=== PATIENT | male | born 1995 | race Caucasian/White ===

== ENCOUNTER 2021-03-03 13:34 | Outpatient (REF) | payer OTHER, MEDICAID, SELFPAY ==
[2021-03-03 15:43] LABS: Vitamin D 25-OH Total 51.1 ng/mL (>30)
[2021-03-08 01:27] LABS: Alpha-Tocopherol 9.9 mg/L (5.7-19.9); Beta-Gamma Tocopherol <1.0 mg/L (<=4.3)
[2021-03-08 09:31] LABS: Vitamin A 69 mcg/dL (38-98)
== END 2021-03-03 13:35 | disposition home or self-care (01) ==
LOC: HO.LAB 13:34
PROVIDERS: PCP Family Medicine; Visit Provider Student in an Organized Health Care Education/Training Program
DX: E50.9 Vitamin A deficiency, unspecified (principal); E55.9 Vitamin D deficiency, unspecified
CPT/HCPCS: 36415; 82306; 84446; 84590

== ENCOUNTER 2021-03-04 10:32 | Outpatient (REF) | payer OTHER, MEDICAID, SELFPAY ==
[2021-03-04 11:37] LABS: CDIFF Ag Negative (Negative); CDIFF Internal ctrl Dots and bkg OK (V); CDiff Toxin Negative (Negative)
== END 2021-03-04 10:33 | disposition home or self-care (01) ==
LOC: HO.LDS 10:32
PROVIDERS: Visit Provider Student in an Organized Health Care Education/Training Program
DX: R19.7 Diarrhea, unspecified (principal)
CPT/HCPCS: 87324; 87449

== ENCOUNTER 2021-03-19 19:57 | Emergency (ER) | payer OTHER, MEDICAID, SELFPAY ==
[2021-03-19 20:05] VITALS: BP 131/72; PULSE 106; RESP 20; TEMP 36.7; O2SAT 100; BMI 23.2
--- NOTE | 2021-03-19 20:12 | ED_ITS ---
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 Related Data Previous Rx's Medication Instructions Recorded epinephrine [EpiPen 2-Yomi] 0.3 mg IM Q15M PRN #2 ea 03/19/21 Allergies Allergy/AdvReac Type Severity Reaction Status Date / Time apple Allergy Anaphylaxis Verified 03/19/21 20:18 banana Allergy Anaphylaxis Verified 03/19/21 20:18 blue dye Allergy Anaphylaxis Verified 03/19/21 20:18 cayenne pepper fruits Allergy Anaphylaxis Verified 03/19/21 20:18 Dihydroaminopryidine Allergy Anaphylaxis Verified 03/19/21 20:18 Antibiotics Iodinated Contrast Media Allergy Anaphylaxis Verified 03/19/21 20:18 kiwi Allergy Anaphylaxis Verified 03/19/21 20:18 latex Allergy Anaphylaxis Verified 03/19/21 20:18 Latex, Natural Rubber Allergy Anaphylaxis Verified 03/19/21 20:18 Macrolide Antibiotics Allergy Anaphylaxis Verified 03/19/21 20:18 marijuana Allergy Anaphylaxis Verified 03/19/21 20:18 melon Allergy Anaphylaxis Verified 03/19/21 20:18 metoclopramide [From Reglan] Allergy Anaphylaxis Verified 03/19/21 20:18 monosodium glutamate Allergy Anaphylaxis Verified 03/19/21 20:18 nut - unspecified Allergy Anaphylaxis Verified 03/19/21 20:18 passion fruit Allergy Anaphylaxis Verified 03/19/21 20:18 pear Allergy Anaphylaxis Verified 03/19/21 20:18 pineapple Allergy Anaphylaxis Verified 03/19/21 20:18 prochlorperazine Allergy Anaphylaxis Verified 03/19/21 20:18 [From Compazine] propofol Allergy Anaphylaxis Verified 03/19/21 20:18 red dye Allergy Anaphylaxis Verified 03/19/21 20:18 sodium phosphate Allergy Anaphylaxis Verified 03/19/21 20:18 Sulfa (Sulfonamide Allergy Anaphylaxis Verified 03/19/21 20:18 Antibiotics) tree nut Allergy Anaphylaxis Verified 03/19/21 20:18 yellow dye Allergy Anaphylaxis Verified 03/19/21 20:18 fruit Allergy Anaphylaxis Uncoded 03/19/21 20:18 quinoa Allergy Anaphylaxis Uncoded 03/19/21 20:18 Review of Systems Review of Systems: Yes all other systems are reviewed and are negative [facility] Past Medical History Medical History Anaphylactic reaction Dystonia Gastrointestinal tube present Mast cell disorder Multiple allergies Social History Social History Alcohol intake: never Patient Tobacco Use Status: Never used Tobacco Use of substances other than those prescribed or required for medical reasons: Yes Advance Directives: No Advance Directives Information Provided: No Physical Exam Vital Signs: Vital Signs: Last Vital Signs Temp 98.1 F 03/19/21 20:05 Pulse 88 03/19/21 21:25 Resp 16 03/19/21 21:25 BP 122/65 03/19/21 21:25 Pulse Ox 100 03/19/21 21:25 Body Mass Index 23.2 Appearance: Alert. Oriented X3. No acute distress. Eyes: PERRLA, No Nystagmus ENT: Pharynx normal. Oral Mucosa moist normal oral mucosa normal tongue and lips normal uvula slight facial erythema+ Neck: Normal inspection. Neck supple. CVS: Normal heart rate and rhythm. Pulses normal. Respiratory: No respiratory distress. Equal air entry bilateral, no wheezing/rales/rhonchi Abdomen: Soft and nontender. Bowel sounds are present, no mass palpable, no CVA tenderness Skin: Skin warm and dry. Slight erythema of the face no urticaria or hives Normal skin turgor. Extremities: No lower extremity edema. No calf tenderness Neuro: Oriented X 3. 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
[2021-03-19] MEDS: methylPREDNISolone Sod Succ 125 MG/2 ML VIAL IVPUSH (20:27)
[2021-03-19] MEDS: Famotidine/PF 20 MG/2 ML VIAL IVPUSH (20:27)
[2021-03-19 21:25] VITALS: BP 122/65; PULSE 88; RESP 16; O2SAT 100
--- NOTE | 2021-03-19 21:35 | PC.NURSE ---
Patient states that he is still feeling that his throat is tight and his breathing is tight. Patient has repirations of 14 without difficulty breathing, Oxygen saturation is 99 percent of room air and 76 for a heart rate. Per MD patient to have something to drink. Patient able to hold fluid in his mouth, swallow without difficulty and manage his own saliva. MD aware. Plan is to watch patient for another hour and if no more issues discharge home.
== END 2021-03-19 22:10 | disposition home or self-care (01) ==
PROVIDERS: Emergency Provider Internal Medicine; PCP Family Medicine
DX: T78.40XA Allergy, unspecified, initial encounter (principal); X58.XXXA Exposure to other specified factors, initial encounter
CPT/HCPCS: 96374; 96375; 99284; J2930

== ENCOUNTER 2021-05-08 11:00 | Outpatient (RCR) | payer OTHER, MEDICAID, SELFPAY | END 2021-05-08 13:20 | disposition home or self-care (01) | LOC: HO.PT 11:00 | PROVIDERS: PCP Family Medicine; Visit Provider Family Medicine | DX: G62.9 Polyneuropathy, unspecified (principal) | CPT/HCPCS: 97110; 97112; 97163; 97530 ==

== ENCOUNTER 2021-05-15 08:30 | Outpatient (RCR) | payer OTHER, MEDICAID, SELFPAY | END 2021-05-15 09:16 | disposition home or self-care (01) | LOC: HO.OT 08:30 | PROVIDERS: PCP Family Medicine; Visit Provider Student in an Organized Health Care Education/Training Program | DX: G56.93 Unspecified mononeuropathy of bilateral upper limbs (principal); G62.9 Polyneuropathy, unspecified | CPT/HCPCS: 29125; 97035; 97110; 97140; 97167; 97535; 97760 ==